=== PATIENT | female | born 1985 | race Caucasian/White ===

== ENCOUNTER 2017-06-16 08:58 | Emergency (ER) | payer OTHER ==
[2017-06-16] MEDS ORDERED: ACETAMINOPHEN 500 MG TAB PO ONE (09:12)
--- NOTE | 2017-06-16 09:34 | EDPHY ---
H & P Stated Complaint: head injury,pain and swelling right lower back from fall Time Seen by Provider: 06/16/17 09:29 - Personal History Current Tetanus Diphtheria and Acellular Pertussis (TDAP): Yes Tetanus Vaccine Date: 08/03 - Medical/Surgical History Hx Asthma: No Hx Chronic Respiratory Disease: No Hx Diabetes: No Hx Cardiac Disease: No Hx Renal Disease: No Hx Cirrhosis: No Hx Alcoholism: No Hx HIV/AIDS: No Hx Splenectomy or Spleen Trauma: No Other PMH: breast augment x 2, D&C x 2, hx of anxiety - Social History Smoking Status: Never smoked Constitutional: Initial Vital Signs Temperature (C) 36.7 C 06/16/17 09:14 Heart Rate 85 06/16/17 09:14 Respiratory Rate 16 06/16/17 09:14 Blood Pressure 138/88 H 06/16/17 09:14 O2 Sat (%) 97 06/16/17 09:14 O2 Delivery Mode Room Air Allergies/Adverse Reactions: hydrocodone bitartrate [From Vicodin] Allergy (Verified 06/16/17 09:13) GI oxycodone HCl [From Percocet] Allergy (Verified 06/16/17 09:13) CHEST PRESSURE Home Medications: Medication Instructions Recorded Vit D3/Folic Acid/B2/B6/B12 1 tab PO DAILY 04/18/13 [Folgard Tablet] Medical Decision Making - Diagnostics Imaging Results: Imaging Impressions Head CT 06/16/17 09:29 Impression: No acute intracranial findings. Findings discussed with Yefri Hagan MD on 06/16/2017 at 10:22 a.m. Lumbar Spine X-Ray 06/16/17 09:29 Impression: Possible medial left 12th rib fracture. Correlation with symptoms is recommended. ED Course/Re-evaluation: CHIEF COMPLAINT: Fall HISTORY OF PRESENT ILLNESS: 31-year-old healthy female who slipped on her hardwood floors while wearing socks. She hit her lower back on 1 step and then hit her head on another step. She denies loss of consciousness, she denies retrograde and antegrade amnesia, she denies nausea vomiting, she denies any neurologic dysfunction, she has very minimal head trauma with a small bump on the right parietal occiput area. She also has a contusion on the right side of her back just right of the spine. She is able to ambulate without any pain whatsoever. She does not feel dizzy. She is somewhat tearful and anxious because there has been a in the family from a blood clot and she is concerned. REVIEW OF SYSTEMS: A 10 point review of systems was performed and is negative with the exception of the elements mentioned in the history of present illness. PHYSICAL EXAM: HR, BP, O2 Sat, RR. Temp noted General Appearance: Alert, well hydrated, appropriate, and non-toxic appearing. Head: Atraumatic without scalp tenderness or obvious injury Eyes: Pupils equal, round, reactive to light and accommodation, EOMI, no trauma , no injection. Ears: Clear bilaterally, no perforation, normal landmarks Nose: Atraumatic, no rhinorrhea, clear. Throat: There is no erythema or exudates, no lesions, normal tonsils, mucus membranes moist. Neck: Supple, 2+ carotid upstroke, nontender, no lymphadenopathy. Respiratory: No retractions, no distress, no wheezes, and no accessory muscle use. Lungs are clear to auscultation bilaterally. Cardiovascular: Regular rate and rhythm, no murmurs, rubs, or gallops. Bilateral carotid, radial, dorsalis pedis, and posterior tibial pulses intact. Good capillary refill all extremities. Gastrointestinal: Abdomen is soft, nontender, non-distended, no masses, no rebound, no guarding, no peritoneal signs. Musculoskeletal: Some contusion and swelling just to the right of the lumbar spine. No spinal tenderness. Mild right-sided paraspinal and transverse process tenderness. Normal active ROM of all extremities, atraumatic. Neurological: Alert, appropriate, and interactive. The patient has normal DTRs and non-focal cranial nerves, motor, sensory, and cerebellar exam. Skin: Small goose egg the right occipital parietal area with no laceration or abrasion. Otherwise, No rashes, good turgor, no nodules on palpation. Past medical history: Noncontributory Past surgical history: Breast augmentation Family history: Positive for postoperative DVT and fatal pulmonary embolus in mother Social history: 2 children, employed, does not abuse tobacco drugs or alcohol DIAGNOSTICS/PROCEDURES/CRITICAL CARE TIME: Study: CT of the head without contrast Indication: Although this patient is negative on [place] head CT and nexus rules set she wants to move forward with a noncontrast head CT scan despite radiation risk which has been discussed thoroughly. Results: CT scan of the head was obtained. The results of the study are normal. The study was read by the radiologist, Dr. Bahrat Jackman. I viewed the images myself on the PACS system. Study: Lumbar spine Indication: Trauma Results: After viewing the images myself on the PACS system. My interpretation of the images is: no acute process. I have discussed the above x -rays with the radiologist. DIFFERENTIAL DIAGNOSIS: The differential diagnosis for the patient's trauma included but was not limited to intracranial injury, long bone and pelvic bone fractures, spinal injury, intra-abdominal injury, and intra-thoracic injury. MEDICAL DECISION MAKING: I had a long discussion with this patient about the utility of a head CT. She does not meet criteria based on the nexus or [place] head CT rules set however she is quite anxious and nervous especially in light of a recent in her family. She would like to proceed with the CT she understands the radiation risk. I will also perform lumbar spine x- rays. She can ambulate without difficulty and I do not expect any neurologic problem. Although this patient had a bout of gastritis when she took NSAIDs in the past I recommend using some Advil for a few days in addition to Prilosec to protect her stomach. I will give her doses in her discharge instructions. I have explained activity level and active recovery. She will follow up with her primary care doctor if needed. - Data Points Medications Given: Discontinued Medications Acetaminophen (Tylenol) 1,000 mg PO EDNOW ONE Stop: 06/16/17 09:13 Last Admin: 06/16/17 09:22 Dose: 1,000 mg Ibuprofen (Motrin) 600 mg PO EDNOW ONE Stop: 06/16/17 10:12 Last Admin: 06/16/17 10:15 Dose: 600 mg Miscellaneous Medication (Icy Hot Lidocaine/Menthol 4%/1% Patch) 1 patch TD EDNOW ONE Stop: 06/16/17 09:59 Last Admin: 06/16/17 10:08 Dose: 1 patch Departure - Departure Disposition: Home, Routine, Self-Care Clinical Impression: Back contusion Qualifiers: Encounter type: initial encounter Laterality: right Qualified Code(s): S20.221A - Contusion of right back wall of thorax, initial encounter Contusion of scalp Qualifiers: Encounter type: initial encounter Qualified Code(s): S00.03XA - Contusion of scalp, initial encounter Condition: Good Instructions: Contusion in Adults (ED), Scalp Contusion in Adults (ED) Additional Instructions: Use 600 mg of ibuprofen 3 times a day and 20 mg Prilosec daily both of which are over the counter. Remaining active. Follow up with your primary doctor if her symptoms are not better in the next few days. Referrals: NONE *PRIMARY CARE P,. [Primary Care Provider] - As per Instructions
[2017-06-16] MEDS ORDERED: LIDOCAINE 4%/MENTHOL 1% PATCH TD ONE (09:58)
[2017-06-16] MEDS ORDERED: IBUPROFEN 600 MG TAB PO ONE (10:11)
[2017-06-16 11:05] VITALS: TEMP 98.1
[2017-06-16 11:13] VITALS: BP 132/78; PULSE 82; RESP 14; O2SAT 96
[2017-06-16] MEDS ORDERED: PATCH REMOVAL 1 EA PATCH TD SCH (21:00)
== END 2017-06-16 11:01 | disposition home or self-care (01) ==
LOC: CED 08:58
DX: S00.03XA Contusion of scalp, initial encounter (principal); S20.221A Contusion of right back wall of thorax, initial encounter; W01.198A Fall on same level from slipping, tripping and stumbling with subsequent striking against other object, initial encounter
CPT/HCPCS: 70450-PO; 72100-PO